=== PATIENT | female | born 1945 | race Caucasian/White ===

== ENCOUNTER 2024-02-02 09:48 | Outpatient (CLI) | payer MEDICARE | END 2024-02-02 09:49 | disposition home or self-care (01) | LOC: ULT 09:48 | PROVIDERS: ATTEND Urology | DX: N39.46 Mixed incontinence (principal); R35.0 Frequency of micturition; N39.43 Post-void dribbling | CPT/HCPCS: 76770 ==

== ENCOUNTER 2024-03-12 11:30 | Inpatient (IN) | payer MEDICARE ==
[2024-03-12 12:06] LABS: #Basophils 0.04 10x3/uL (0.0-0.2); %Basophils 0.5 % (0.0-1.0); %Eosinophils 2.2 % (0.0-10.0); %Monocytes 8.9 % (0.0-10.0); %Neutrophils 71.2 % (42.0-75.0); Hematocrit 40.5 % (36.0-47.0); Hemoglobin 13.2 g/dL (12.0-16.0); Mean Corpuscular HGB CONC 32.6 g/dL (32.0-36.0); Mean Platelet Volume 9.9 fL (7.4-10.4); Platelet Count 202 10x3/uL (130-400); RBC Distribution Width 14.3 % (11.5-14.5)
[2024-03-12 12:24] LABS: ALT (SGPT) 26 U/L (8-55); AST (SGOT) 27 U/L (5-34); Alkaline Phosphatase 88 U/L (40-110); Anion Gap 14 mmol/L (10-20); BUN (Urea Nitrogen) 7 mg/dL (9.8-20.1); Bilirubin, Total 1.4 mg/dL (0.2-1.2); Calc. Creatinine Clearance 0 mL/min (70-130); Calcium 8.7 mg/dL (7.8-10.44); Carbon Dioxide 24 mmol/L (23-31); Chloride 108 mmol/L (98-107); Estimated GFR 88; Globulin 2.9 g/dL (2.4-3.5); Glucose 104 mg/dL (83-110); Potassium 3.7 mmol/L (3.5-5.1); Protein, Total 5.9 g/dL (5.8-8.1); Sodium 142 mmol/L (136-145)
[2024-03-12 13:26] LABS: Magnesium 1.8 mg/dL (1.6-2.6)
[2024-03-12 13:29] LABS: Troponin I Less than 0.010 ng/mL (< 0.028)
[2024-03-12 14:22] LABS: Bilirubin Negative (Negative); Blood, Urine Negative (Negative); CAUTI Indications for Culture Alt mental st,lethar; Clarity Turbid (Clear); Glucose, Urine (Dipstick) Normal (Negative); Ketone, Urine Negative (Negative); Leukocyte 25 Leu/uL (Negative); Nitrite Negative (Negative); Protein, Urine (Dipstick) 10 mg/dL (Neg-Trace); RBC/HPF 0-3 HPF (0-3); Specific Gravity, Urine 1.015 (1.002-1.036); Urobilinogen Normal mg/dL (Less than 2); WBC/HPF 0-3 HPF (0-3); pH, Urine 6.5 (5.0-9.0)
[2024-03-12 14:28] LABS: Bacteria/HPF 1+ HPF (None Seen)
[2024-03-12 14:29] LABS: Urine Culture Reflex No No
[2024-03-12] MEDS ORDERED: Acetaminophen 325 MG TAB PO PRN (19:38)
[2024-03-12 22:30] VITALS: BMI 54.6
[2024-03-13 04:51] LABS: #Basophils 0.03 10x3/uL (0.0-0.2); %Basophils 0.4 % (0.0-1.0); %Eosinophils 2.8 % (0.0-10.0); %Lymphocytes 14.3 % (21.0-51.0); %Neutrophils 75.1 % (42.0-75.0); Hematocrit 39.4 % (36.0-47.0); Hemoglobin 12.8 g/dL (12.0-16.0); Mean Corpuscular HGB CONC 32.5 g/dL (32.0-36.0); Mean Corpuscular Volume 92.3 fL (78.0-98.0); Mean Platelet Volume 10.1 fL (7.4-10.4); Platelet Count 186 10x3/uL (130-400); RBC Distribution Width 14.3 % (11.5-14.5); Red Blood Cell (RBC) Count 4.27 mill/uL (4.20-5.40)
[2024-03-13 05:04] LABS: Anion Gap 13 mmol/L (10-20); BUN (Urea Nitrogen) 7 mg/dL (9.8-20.1); Calc. Creatinine Clearance 130 mL/min (70-130); Calcium 8.6 mg/dL (7.8-10.44); Carbon Dioxide 25 mmol/L (23-31); Chloride 107 mmol/L (98-107); Estimated GFR 82; Glucose 130 mg/dL (83-110); Potassium 3.7 mmol/L (3.5-5.1); Sodium 141 mmol/L (136-145)
[2024-03-13] MEDS: Valsartan 80 MG TAB PO SCH (09:50)
[2024-03-13] MEDS: Enoxaparin 40 MG (0.4 mL) SYRINGE SC SCH (09:50)
[2024-03-13] MEDS: Atorvastatin Calcium 40 MG TAB PO SCH (09:50)
[2024-03-13] MEDS: Trospium 20 MG TAB PO SCH (09:50)
[2024-03-16] MEDS: Ondansetron PF 4 MG/2 ML Vial IVP PRN (09:10)
[2024-03-17 08:20] VITALS: TEMP 97.6
[2024-03-17 11:50] VITALS: BP 128/70
== END 2024-03-17 11:40 | DRG 92 ==
LOC: ERS 11:30 → 2NO 18:27 → OBSVTOIN 03-13 07:53 → SURG A 03-15 18:54
PROVIDERS: ADMIT Family Medicine; ATTEND Internal Medicine
DX: R29.6 Repeated falls (principal); Z68.43 Body mass index [BMI] 50.0-59.9, adult; W19.XXXA Unspecified fall, initial encounter; I10 Essential (primary) hypertension; Z66 Do not resuscitate; E78.5 Hyperlipidemia, unspecified; G47.33 Obstructive sleep apnea (adult) (pediatric); M19.90 Unspecified osteoarthritis, unspecified site; N32.81 Overactive bladder; E66.01 Morbid (severe) obesity due to excess calories; Z95.0 Presence of cardiac pacemaker
CPT/HCPCS: 36415; 70450; 71045; 80048; 80053; 81001; 83605; 83735; 83880; 84443; 84484; 85025; 93005; G0378; J1650; J2405